=== PATIENT | female | born 1995 | race Two or more races ===

== ENCOUNTER 2019-09-21 15:53 | Emergency (ER) | payer BC, MEDICAID ==
[~2019-09-21] VITALS: Ht 157.5 cm; Wt 65.3 kg
[2019-09-21 15:59] VITALS: BP 135/91
[2019-09-21] MEDS ORDERED: ALPRAZolam 0.5 MG TAB PO ONE (17:15)
== END 2019-09-21 17:42 | disposition home or self-care (01) ==
LOC: ER 15:53
DX: F41.1 Generalized anxiety disorder (principal)

== ENCOUNTER 2020-05-30 13:37 | Emergency (ER) | payer SELFPAY ==
[~2020-05-30] VITALS: Ht 157.5 cm; Wt 67.6 kg
[2020-05-30 13:56] LABS: Basophils # (auto) 0 10 ^3/uL (0-0.2); Basophils % (auto) 0.3 % (0.0-2.0); Eosinophils # (auto) 0.1 10 ^3/uL (0-0.8); Eosinophils % (auto) 1.7 % (0.0-7.0); Hematocrit 42.5 % (36.0-46.0); Hemoglobin 14.6 g/dL (12.2-16.2); Lymphocytes # (auto) 1.5 10 ^3/uL (0.4-5.4); Lymphocytes % (auto) 20.6 % (10.0-50.0); Mean Corpuscular Hemoglobin 31.9 pg (28.0-32.0); Mean Corpuscular Hgb Conc. 34.4 g/dL (32.0-36.0); Mean Corpuscular Volume 92.8 fL (80.0-100.0); Monocytes # (auto) 0.8 10 ^3/uL (0-1.3); Monocytes % (auto) 10.2 % (0.0-12.0); Neutrophils % (auto) 67.2 % (37.0-80.0); Red Blood Cells 4.57 10^6/uL (4.0-5.20); Red Cell Distribution Width 12.5 % (11.8-14.3); White Blood Cell 7.5 10^3/uL (4.4-10.8)
[2020-05-30 14:08] LABS: Urine Bacteria MOD /hpf (None Seen); Urine Blood 3+ /uL (Negative); Urine Specific Gravity 1.003 (1.001-1.035); Urine WBC 1 /hpf (0 - 5)
[2020-05-30 14:50] VITALS: BP 139/89
== END 2020-05-30 15:57 | disposition home or self-care (01) ==
LOC: ER 13:37
DX: O20.0 Threatened abortion (principal); Z3A.01 Less than 8 weeks gestation of pregnancy
CPT/HCPCS: 36415; 76801; 76817; 81001; 84702; 85025